=== PATIENT | female | born 1970 | race Hispanic/Latino ===

== ENCOUNTER 2023-12-20 13:29 | Emergency (ER) | payer BC, OTHER ==
[2023-12-20] MEDS ORDERED: ONDANSETRON 4 MG/2 ML VIAL ONE (13:36)
[2023-12-20] MEDS ORDERED: NA CHLORIDE 0.9% 1,000 ML ONE (13:37)
[2023-12-20] MEDS ORDERED: DIAZEPAM 5 MG TABLET ONE (13:37)
[2023-12-20] MEDS ORDERED: KETOROLAC 30 MG/ML INJ ONE (13:37)
[2023-12-20 14:02] LABS: Absolute Basophils 0.1 K/uL (0-0.5); Absolute Eosinophils 0.2 K/uL (0-0.5); Absolute Lymphocytes (CBC) 2.5 K/uL (0.7-4.9); Absolute Monocytes 0.6 K/uL (0.1-1.3); Absolute Neutrophil 5.1 K/uL (1.8-8.0); Basophils % 0.6 % (0-1.3); Eosinophils % 2.6 % (0-4.4); Hematocrit 41.8 % (36.0-45.0); Hemoglobin 13.9 g/dL (12.0-15.0); Lymphocytes % 29.2 % (15.3-44.8); MCH 31.4 pg (27.0-35.0); MCHC 33.2 g/dL (32.0-36.0); MCV 94.5 fL (80-100); Monocytes % 6.6 % (3.3-12.3); Platelets 240 thou/uL (152-406); RBC Red Blood Cell Count 4.42 M/uL (3.86-4.86); Red Cell Distribution Width 13.3 % (12.1-15.2)
[2023-12-20 14:18] LABS: ALT/SGPT 41 U/L (13-56); AST/SGOT 20 U/L (15-37); Albumin 3.3 g/dL (3.4-5.0); Albumin/Globulin Ratio 0.8 (1.1-1.8); Alkaline Phosphatase 67 U/L (45-117); Anion Gap 8.5 mEq/L (5.0-15.0); BUN Blood Urea Nitrogen 15 mg/dL (7-18); Bicarbonate 26 mEq/L (21-32); Bilirubin Direct < 0.2 mg/dL (0-0.2); Bilirubin Indirect, Calculated 0.2 mg/dL (0.2-0.8); Bilirubin Total 0.4 mg/dL (0.2-1.0); Globulin 3.9 g/dL (2.3-3.5); Glomerular Filtration Rate 78 ml/min (=/>90); Glucose Level 116 mg/dL (74-106); Lipase 98 U/L (13-75); Potassium 3.5 mEq/L (3.5-5.1); Protein, Total 7.2 g/dL (6.4-8.2); Sodium Level 141 mEq/L (136-145)
[2023-12-20 14:55] LABS: Specific Gravity 1.016 (1.005-1.030); Urine Bacteria None Seen /HPF (<20); Urine Bilirubin NEGATIVE (Negative); Urine Blood Negative (Negative); Urine Clarity Extremely Turbid (Clear); Urine Color Light-Yellow (Yellow); Urine Culture Reflex Order NOT NEEDED; Urine Glucose NEGATIVE (Negative); Urine Ketones NEGATIVE (Negative); Urine Microscopic Reflex YN ORDER UMIC; Urine Mucus 1+ /HPF (None Seen); Urine Nitrite NEGATIVE (Negative); Urine Protein NEGATIVE (Negative); Urine RBC None Seen /HPF (None Seen); Urine Urobilinogen Normal (Normal); Urine WBC <5 /HPF (<5); Urine pH 6.5 (5.0-7.0)
[2023-12-20] MEDS ORDERED: CEFTRIAXONE 1000 MG/VIAL ONE (15:28)
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
[2023-12-20] MEDS ORDERED: MORPHINE 4 MG/ML SYR ONE (16:05)
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
[2023-12-20 18:37] VITALS: O2SAT 98
[2023-12-20 18:38] VITALS: BP 133/91; TEMP 97.9
== END 2023-12-20 18:10 | disposition home or self-care (01) ==
LOC: ER 13:29
DX: S20.229A Contusion of unspecified back wall of thorax, initial encounter (principal); S20.219A Contusion of unspecified front wall of thorax, initial encounter; S20.20XA Contusion of thorax, unspecified, initial encounter; S16.1XXA Strain of muscle, fascia and tendon at neck level, initial encounter; S29.092A Other injury of muscle and tendon of back wall of thorax, initial encounter; N39.0 Urinary tract infection, site not specified; V43.52XA Car driver injured in collision with other type car in traffic accident, initial encounter; Y93.89 Activity, other specified; Y92.410 Unspecified street and highway as the place of occurrence of the external cause
CPT/HCPCS: 96365; 96361; 87088; 85025; 81001; 87086; 36415; 82248; 83690; 80053; 70450; 72125; 71260; 74177; 96375; 99284; Q9967; J2405; J7030; J0696; 87077; 87186